=== PATIENT | female | born 1965 | race Caucasian/White ===

== ENCOUNTER → 2016-08-17 | Outpatient (CLI) | payer OTHER ==
[~2016-08-17] MED LIST: BARIUM SULFATE 60% 355 ML SUSP PO ONE; BARIUM SULFATE 98% 135 ML SUSP PO ONE
--- NOTE | 2016-08-17 10:55 | RAD ---
Esophagram, 08/17/2016: History: Dysphagia, intermittently food gets stuck The study was performed utilizing high density and regular liquid barium. 2.2 minutes of fluoroscopy time was utilized. 7 static and dynamic fluoroscopic were recorded. The swallowing mechanism is intact. There is a mild posterior impression upon the lower cervical esophagus due to cervical spurs. There is no obstruction to flow of the barium materials through that region. The esophageal peristalsis is normal. There is a small hiatal hernia with an associated Schatzki's ring. The Schatzki's ring opens up to a diameter of 14 mm. This may or may not cause obstructive symptoms depending on the patient's eating habits. No gastroesophageal reflux was demonstrated. IMPRESSION: Small hiatal hernia with an associated Schatzki's ring as described above.
== END | disposition home or self-care (01) ==
LOC: RAD 10:04
PROVIDERS: ATTEND Physician Assistant
DX: R13.12 Dysphagia, oropharyngeal phase (principal); K44.9 Diaphragmatic hernia without obstruction or gangrene; K22.2 Esophageal obstruction
CPT/HCPCS: 74220

== ENCOUNTER 2020-08-07 17:50 | Emergency (ER) | payer OTHER ==
[~2020-08-07] VITALS: Ht 162.6 cm; Wt 86.0 kg
--- NOTE | 2020-08-07 18:04 | EKG ---
[address] [address] Test Date: 2020-08-07 Test Time: 17:56:56 Pat Name: FESTUS LERMA Department: Room: Gender: F District Attorney: TAMAR : 1965 Requested By: JULIANNA CASTAÑEDA Order Number: [id number] Reading MD: Measurements Intervals [place] Rate: 77 P: 65 WV: 160 QRS: 41 QRSD: 74 T: 76 QT: 364 QTc: 414 Interpretive Statements SINUS RHYTHM T ABNORMALITY IN HIGH LATERAL LEADS ABNORMAL ECG RI6.02 No previous ECG available for comparison
--- NOTE | 2020-08-07 18:17 | PHYS DOC ---
General Adult EDM: Chief Complaint: CHEST PAIN HPI: HPI: Patient is a 55-year-old female who presents with chest pressure, shortness of breath, pain that radiated to her neck and down her left arm. Patient states "felt like a band squeezing me around my chest". Patient reports that she was driving when the pain started. Pain was intermittent and lasted about 5 minutes. "My family has a lot of heart disease and so that is why I got nervous". Patient denies any symptoms or pain at this time. Denies taking anything for pain prior to arrival. Denies recent illness. Patient has a history of asthma, bladder cancer. (JULIANNA CASTAÑEDA APRN) Review of Systems: Review of Systems: Constitutional: Denies fever or chills Eyes: Denies change in visual acuity HENT: Denies nasal congestion or sore throat Respiratory: Denies cough or shortness of breath Cardiovascular: Denies chest pain or edema GI: Denies abdominal pain, nausea, vomiting, bloody stools or diarrhea : Denies dysuria Musculoskeletal: Denies back pain or joint pain Integument: Denies rash Neurologic: Denies headache, focal weakness or sensory changes Endocrine: Denies polyuria or polydipsia Lymphatic: Denies swollen glands Psychiatric: Denies depression or anxiety (JULIANNA CASTAÑEDA APRN) Allergies: Allergies: Allergies Coded Allergies Type Severity Reaction Last Updated Verified No Known Drug Allergies 08/17/16 No (JULIANNA CASTAÑEDA APRN) Physical Exam: PE: Constitutional: Well developed, well nourished, no acute distress, non-toxic appearance. HENT: bilateral external ears normal, oropharynx moist, no oral exudates, nose normal. Eyes: PERRLA, EOMI, conjunctiva normal, no discharge. Neck: Normal range of motion, no tenderness, supple, no stridor. Cardiovascular:Heart rate regular rhythm, no murmur Lungs & Thorax: Bilateral breath sounds clear to auscultation Abdomen: Bowel sounds normal, soft, no tenderness, Skin: Warm, dry, no erythema, no rash. Back: No tenderness, no CVA tenderness. Extremities: No tenderness, no cyanosis, no clubbing, ROM intact, no edema. Neurologic: Alert and oriented X 3, normal motor function, normal sensory function, no focal deficits noted. Psychologic: Affect normal, judgement normal, mood normal. (JULIANNA CASTAÑEDA APRN) EKG: EKG: Sinus rhythm. Heart rate 77 bpm. [] (JULIANNA CASTAÑEDA APRN) Radiology/Procedures: Radiology/Procedures: [] XR CHEST 1V 08/07/2020 6:20 PM INDICATION: Chest pain COMPARISON: None available TECHNIQUE: Portable frontal view of the chest is provided. FINDINGS: The cardiomediastinal silhouette is within normal limits. Lungs are clear. There are no significant pleural effusions. There is no pulmonary vascular congestion. No pneumothorax. No suspicious osseous abnormality. IMPRESSION: There is no acute cardiopulmonary process. Electronically signed by: Betsy Turner MD (08/07/2020 7:24 PM) [facility] (JULIANNA CASTAÑEDA APRN) Radiology/Procedures: XR CHEST 1V 08/07/2020 6:20 PM INDICATION: Chest pain COMPARISON: None available TECHNIQUE: Portable frontal view of the chest is provided. FINDINGS: The cardiomediastinal silhouette is within normal limits. Lungs are clear. There are no significant pleural effusions. There is no pulmonary vascular congestion. No pneumothorax. No suspicious osseous abnormality. IMPRESSION: There is no acute cardiopulmonary process. Electronically signed by: Betsy Turner MD (08/07/2020 7:24 PM) [facility] (CHRISTIANNE BURTON MD) Heart Score: C/O Chest Pain: Yes HEART Score for Chest Pain: HEART Score for Chest Pain Response (Comments) Value History Moderately Suspicious 1 ECG Normal 0 Age >45 - < 65 1 Risk Factors No Risk Factors 0 Troponin < Normal Limit 0 Total 2 Risk Factors: Risk Factors: DM, Current or recent (<one month) smoker, HTN, HLP, family history of CAD, obesity. Risk Scores: Score 0 - 3: 2.5% MACE over next 6 weeks - Discharge Home Score 4 - 6: 20.3% MACE over next 6 weeks - Admit for Clinical Observation Score 7 - 10: 72.7% MACE over next 6 weeks - Early Invasive Strategies (JULIANNA CASTAÑEDA APRN) Course & Med Decision Making: Course & Med Decision Making Pertinent Labs and Imaging studies reviewed. (See chart for details) [] 55-year-old female presents after she was driving her car started having chest pressure, shortness of breath, pain that radiated to her neck and her left arm. Patient denies any symptoms at this time. Patient reports pain lasted about 5 minutes. Chest x-ray ordered to rule out any acute abnormalities. EKG shows sinus rhythm. Heart rate 77 bpm. Initial troponin negative. Heart score of 2. All labs unremarkable. Chest x-ray is negative for acute abnormalities. UA is negative for infection. Transfer patient care to Dr. Burton. (JULIANNA CASTAÑEDA APRN) Course & Med Decision Making Patient care transferred to ms at checkout awaiting second troponin. Laboratory analysis not concerning outside of mild elevation in creatinine. EKG and troponins x2 not concerning. Imaging not concerning. Vital signs not concerning. Patient asymptomatic in the ED. Discussed all findings with patient and advised to follow-up first thing tomorrow with primary care physician. Gave return precautions to the ED. Patient grateful, verbalized understanding and agreed with plan discharge. (CHRISTIANNE BURTON MD) Dragon Disclaimer: Dragon Disclaimer: This electronic medical record was generated, in whole or in part, using a voice recognition dictation system. (JULIANNA CASTAÑEDA APRN) Departure Departure: Referrals: TAMMI LARES DO (PCP) JULIANNA CASTAÑEDA APRN August 07, 2020 18:17 CHRISTIANNE BURTON MD August 07, 2020 21:50
[2020-08-07 18:26] LABS: BASO % 0 % (0-3); EOS # 0.2 x10^3/uL (0.0-0.7); EOS % 2 % (0-3); HEMATOCRIT 40.1 % (36.0-47.0); HEMOGLOBIN 13.7 g/dL (12.0-15.5); LYMPH # 4.4 x10^3/uL (1.0-4.8); LYMPH % 40 % (24-48); MEAN CORPUSCULAR HEMOGLOBIN 32 pg (25-35); MEAN CORPUSCULAR HGB CONC 34 g/dL (31-37); MEAN CORPUSCULAR VOLUME 94 fL (79-100); MONO # 0.6 x10^3/uL (0.0-1.1); MONO % 5 % (0-9); NEUT # 5.7 x10^3uL (1.8-7.7); NEUT % 52 % (31-73); PLATELET COUNT 298 x10^3/uL (140-400); RED BLOOD COUNT 4.29 x10^6/uL (3.50-5.40); RED CELL DISTRIBUTION WIDTH 12.5 % (11.5-14.5); WHITE BLOOD COUNT 10.9 x10^3/uL (4.0-11.0)
[2020-08-07 18:45] LABS: ALBUMIN/GLOBULIN RATIO 1.2 (1.0-1.7); CALCIUM 9.6 mg/dL (8.5-10.1); CREATININE 1.5 mg/dL (0.6-1.0); GFR 36.1; MAGNESIUM 2.1 mg/dL (1.8-2.4); POTASSIUM 3.9 mmol/L (3.5-5.1); TOTAL BILIRUBIN 0.3 mg/dL (0.2-1.0); TOTAL PROTEIN 7.4 g/dL (6.4-8.2)
--- NOTE | 2020-08-07 19:26 | RAD ---
XR CHEST 1V 08/07/2020 6:20 PM INDICATION: Chest pain COMPARISON: None available TECHNIQUE: Portable frontal view of the chest is provided. FINDINGS: The cardiomediastinal silhouette is within normal limits. Lungs are clear. There are no significant pleural effusions. There is no pulmonary vascular congestion. No pneumothora x. No suspicious osseous abnormality. IMPRESSION: There is no acute cardiopulmonary process. Electronically signed by: Betsy Turner MD (08/07/2020 7:24 PM) [facility]
[2020-08-07 19:35] LABS: BACTERIA,URINE 0 /HPF (0-FEW); BILIRUBIN,URINE NEG (NEG); CLARITY,URINE CLEAR; COLOR,URINE YELLOW; GLUCOSE,URINE NEG (NEG); NITRITE,URINE NEG (NEG); RBC,URINE OCC /HPF (0-2); SQUAMOUS EPITHELIAL CELL,UR FEW /LPF; UROBILINOGEN,URINE 0.2 mg/dL (0.2 mg/dL); WBC,URINE 0 /HPF (0-4)
[2020-08-07 21:55] VITALS: BP 149/82
== END 2020-08-07 21:55 | disposition home or self-care (01) ==
LOC: ER 17:50
DX: R07.89 Other chest pain (principal)
CPT/HCPCS: 36415; 71045; 80053; 81001; 83735; 83880; 84484; 85025; 85610; 85730; 93005; 99285-25